=== PATIENT | female | born 1975 | race Caucasian/White ===

== ENCOUNTER 2017-09-23 07:40 | Emergency (ER) | payer SELFPAY ==
[2017-09-23 07:46] VITALS: RESP 16; O2SAT 98
--- NOTE | 2017-09-23 07:56 | EDPHY ---
H & P Stated Complaint: Dx'd with shingles last week;acyclovir was making her nauseous ;wants to kno HPI/ROS: CHIEF COMPLAINT: Nausea HISTORY OF PRESENT ILLNESS: The patient is a 42 y/o female complaining of nausea that began after starting medication for shingles 6 days ago. Two weeks ago she developed itching and burning on the left side of her neck. She never noticed a visible rash. She went to the ED for evaluation on 09/17/17, 6 days ago , and was started on acyclovir and 50mg prednisone for presumed shingles. She feels nauseated whenever she takes the acyclovir so she stopped it 3 days ago. She has continued the prednisone and vomited once last night. Her itching sensation has spread to her back. Cortisone cream helps her itching for about 20 -30 minutes. She has not tried an antihistamine. She continues to be without rash. She denies earache or change in hearing. She denies fever, abdominal pain, diarrhea. She reports a baseline "smoker's cough," but has developed a different cough with associated nasal congestion. She is taking Sudafed for those symptoms. REVIEW OF SYSTEMS: A ten point review of systems was performed and is negative with the exception of the items mentioned in the HPI. Past medical history: GERD Past surgical history: noncontributory Family history: noncontributory Social history: 1 pack/day smoker. Employed as bulk mail clerk. Occasional alcohol use. No illicit drugs. Living in car currently. General Appearance: Alert. Vital signs reviewed. Blood pressure 151/101. Eyes: Pupils equal and round, no conjunctival injection, no discharge. Anicteric. ENT, Mouth: TMs clear bilaterally. No mastoid tenderness. Mucous membranes are moist, no oropharyngeal erythema or edema. Poor dentition. Neck: No lymphadenopathy, supple. No thyromegaly Respiratory: Lungs are clear to auscultation; no wheezes, rales, or rhonchi. Cardiovascular: Regular rate and rhythm; no murmur, rub, or gallop. Gastrointestinal: Abdomen is soft and nontender, no masses or organomegaly, bowel sounds normal. Skin: The left upper back has 3-4 very small papular lesions, not vesicular and not in a dermatomal distribution. No significant lesions, vesicles, or significant notable rash. No hives. Back: Nontender to palpation over the thoracolumbar spine. No CVAT. Extremities: No lower extremity edema, no calf tenderness or swelling. Neurological: Alert and oriented. Moving all four extremities easily and equally. Facial sensation is intact to light touch. Hearing intact to spoken voice and finger rub. Psychiatric: Normal affect. - Personal History LMP (Females 10-55): Over 28 Days Ago Current Tetanus Diphtheria and Acellular Pertussis (TDAP): Yes - Medical/Surgical History Other PMH: perimenopausal. GERD - Social History Smoking Status: Current every day smoker Constitutional: Initial Vital Signs Temperature (C) 36.6 C 09/23/17 07:41 Heart Rate 87 09/23/17 07:41 Respiratory Rate 16 09/23/17 07:41 Blood Pressure 151/101 H 09/23/17 07:41 O2 Sat (%) 98 09/23/17 07:41 O2 Delivery Mode Room Air Allergies/Adverse Reactions: fish oil Allergy (Intermediate, Uncoded 09/23/17 07:46) Hives Home Medications: Medication Instructions Recorded Acyclovir [Zovirax 400 mg (*)] 800 mg PO QID 09/23/17 Omeprazole Magnesium [Prilosec Otc] 20 mg PO 09/23/17 predniSONE 1 mg PO 09/23/17 Medical Decision Making ED Course/Re-evaluation: This is a pleasant 42 y/o female who presents with a 2-week history of pruritis on her left lateral neck that has spread to her left thoracic back. She was treated for presumed shingles, but discontinued the acyclovir due to nausea. I do not see obvious evidence of shingles on exam today, which I would expect after 2 weeks of symptoms if this is shingles. There is only a few very small minor papules on exam on exam of her upper back. These are not vesicular and are not in a dermatomal distribution. No hives. No evidence of scabies on exam of her skin. This could be a dermatitis or allergic in nature. She will receive 10mg PO Zyrtec here. She is employed with [employer] but is currently living in her car and is interested in housing and medical resources. I've asked case management to consult with her. - Data Points Medications Given: Discontinued Medications Cetirizine HCl (Zyrtec) 10 mg PO EDNOW ONE Stop: 09/23/17 08:16 Last Admin: 09/23/17 08:55 Dose: 10 mg Departure - Departure Disposition: Home, Routine, Self-Care Clinical Impression: Pruritic dermatitis Condition: Good Instructions: Dermatitis (ED) Additional Instructions: Use 1 of the nonsedating antihistamine such as Zyrtec or Claritin for the itching. Continue with the hydrocortisone cream on the itchy areas. I also recommend Sarna lotion. You can buy all of this [id number]. Referrals: [facility],. [Clinic] - As per Instructions Stand Alone Forms: Work Excuse Report Scribed for: Magi Berman Report Scribed by: Ciara Thayer Date of Report: 09/23/17 Time of Report: 07:58 Physician Review and Approval Statement: 09/23/17 07:56 Portions of this note were transcribed by the medical record transcriber. I, Dr. Magi Berman, personally performed the history, physical exam, and medical decision- making; and confirmed the accuracy of the information in the transcribed note.
[2017-09-23] MEDS ORDERED: CETIRIZINE 10 MG TAB PO ONE (08:15)
[2017-09-23 11:03] VITALS: BP 145/74; PULSE 77; TEMP 98.2
--- NOTE | 2017-09-23 12:41 | ASMTCMCOM ---
CM Note CM Note Notes: Spoke with patient about current homelessness and living out of her. Patient states she has lived near [place] for almost 3 years and that she became homeless about 1 1/2 years ago. Patient says she recently started working for [employer] but doesn't make enough money to get into housing but "makes too much money and I have two cats" so she is ineligible for any housing benefits/support through local resources. Patient states her works at [employer] and they usually just eat there and deduct the money out of his paycheck. Patient says she has not been in contact with resources for about a year and is open and receptive to reaching back out. Patient provided information on the new Coordinate Entry process and strongly encouraged to go through their screening process. Patient also p[rovided information on other local homeless resources such as community table meals, food gar and case management through [facility]. Patient states she doesn't have a PCP and has never been seen at [facility]; information provided and strongly encouraged to call and make new patient appointment. Patient states she will followup with PC and the CE process. Pt calm, pleasant and appreciative of assistance. Date Signed: 09/23/2017 12:40 PM Electronically Signed By:Mayda Mc RN
--- NOTE | 2017-09-23 12:47 | ASDISCHSUM ---
Discharge Information Plan Status:Homeless/Long Term Medically Cleared to Leave: Discharge Date:09/23/2017 11:01 AM CM D/C Disposition:Home, Routine, Self-Care ADT D/C Disposition:Home, Routine, Self-Care Projected Discharge Date:09/23/2017 11:01 AM Transportation at D/C:None or Unknown Discharge Delay Reason: Follow-Up Date:09/23/2017 11:01 AM Discharge Slot: Final Diagnosis: Placement Information Patient Contact Information Contact Name:MACIE Relationship: Address: Work Phone: City: [facility] [place] Phone: State/Zip Code: Email: Financial Information Financial Class:Self-Pay Primary Plan Desc:SELF PAY Primary Plan Number: Secondary Plan Desc: Secondary Plan Number: Assessment Information [facility] Progress Note CM Note CM Note Notes: Spoke with patient about current homelessness and living out of her. Patient states she has lived near [place] for almost 3 years and that she became homeless about 1 1/2 years ago. Patient says she recently started working for [employer] but doesn't make enough money to get into housing but "makes too much money and I have two cats" so she is ineligible for any housing benefits/support through local resources. Patient states her works at [employer] and they usually just eat there and deduct the money out of his paycheck. Patient says she has not been in contact with resources for about a year and is open and receptive to reaching back out. Patient provided information on the new Coordinate Entry process and strongly encouraged to go through their screening process. Patient also p[rovided information on other local homeless resources such as community table meals, food gar and case management through [employer]. Patient states she doesn't have a PCP and has never been seen at [facility]; information provided and strongly encouraged to call and make new patient appointment. Patient states she will followup with PC and the CE process. Pt calm, pleasant and appreciative of assistance. Date Signed: 09/23/2017 12:40 PM Electronically Signed By:Mayda Mc RN LACE LACE Emergency dept visits in Answers: 1 last 6 months Score: 1 Date Signed: 09/23/2017 12:44 PM Electronically Signed By:Mayda Mc RN Intervention Information
== END 2017-09-23 11:01 | disposition home or self-care (01) ==
DX: L30.8 Other specified dermatitis (principal); F17.200 Nicotine dependence, unspecified, uncomplicated

== ENCOUNTER 2018-08-19 13:41 | Emergency (ER) | payer SELFPAY ==
[2018-08-19] MEDS ORDERED: ALBUTEROL 3 ML DEYVIAL IH ONE (14:21)
[2018-08-19] MEDS ORDERED: predniSONE 20 MG TAB PO ONE (14:21)
[2018-08-19] MEDS ORDERED: IPRATROPIUM/ALBUTEROL 3 ML DEYVIAL IH ONE (14:21)
--- NOTE | 2018-08-19 14:22 | EDPHY ---
H & P Time Seen by Provider: 08/19/18 14:16 HPI/ROS: CHIEF COMPLAINT: Cough and shortness of breath HISTORY OF PRESENT ILLNESS: History of bronchitis, tobacco smoker, no history of pulmonary embolism or pneumonia or ACS. Patient started having cough 2 days ago, presents today with persistent cough and shortness of breath. Worse with exertion. Not associated with sputum production or fevers or chills or chest pain. No leg swelling. No hemoptysis. Symptoms moderate. REVIEW OF SYSTEMS: Eye: no change in vision ENT: no sore throat Cardiac: no chest pain or syncope Pulmonary: HPI Abdomen: no vomiting, diarrhea, abdominal pain Musculoskeletal: no back pain Skin: no rash Neuro: no headache Constitutional: no fever : no urinary symptoms A comprehensive 10 point review of systems is otherwise negative aside from elements mentioned in the history of present illness. PAST MEDICAL HISTORY: Includes bronchitis, right knee surgery, left shoulder surgery, GERD Social history: Tobacco smoker General Appearance: Alert and conversant, cooperative. Eyes: No scleral icterus. ENT, Mouth: Normal mucous membranes. No angioedema. Respiratory: Bilateral expiratory wheezing, no focal lung sounds, speaks in full sentences. Cardiovascular: Regular rate and rhythm. Gastrointestinal: Abdomen is soft and non tender. Neurological: Alert, face symmetric, normal motor and sensory in extremities. Skin: Warm and dry, no rashes. Musculoskeletal: No peripheral edema. No calf tenderness. Psychiatric: Not agitated. Emergency Department course/MDM: Likely URI with significant bronchospasm. DuoNeb and albuterol, prednisone discussed and consented. 1502: "I can finally breathe" and lungs clearer, 92-3% on RA, stable for DC. Smoking Status: Current every day smoker Constitutional: Initial Vital Signs Temperature (C) 37.2 C 08/19/18 13:44 Heart Rate 107 H 08/19/18 13:44 Respiratory Rate 24 H 08/19/18 13:44 Blood Pressure 146/96 H 08/19/18 13:44 O2 Sat (%) 93 08/19/18 13:44 O2 Delivery Mode Room Air Allergies/Adverse Reactions: fish oil Allergy (Intermediate, Uncoded 08/19/18 13:43) Hives Home Medications: Medication Instructions Recorded Albuterol Hfa Anes Only [Proair 2 puffs IH QID #1 mdi 08/19/18 Hfa Icu (*)] Sudafed 12 Hour 08/19/18 Tylenol 08/19/18 predniSONE [prednisone 20mg (RX)] 20 mg PO Q12 #10 tab 08/19/18 Medical Decision Making Differential Diagnosis: Differential diagnosis considered for shortness of breath including but not limited to pulmonary infectious process, COPD, asthma, pulmonary embolus and congestive heart failure. - Data Points Medications Given: Discontinued Medications Albuterol (Proventil Neb) 3 ml IH EDNOW ONE Stop: 08/19/18 14:22 Last Admin: 08/19/18 14:32 Dose: 3 ml Albuterol/Ipratropium (Duoneb) 3 ml IH EDNOW ONE Stop: 08/19/18 14:22 Last Admin: 08/19/18 14:32 Dose: 3 ml Prednisone (Prednisone) 60 mg PO EDNOW ONE Stop: 08/19/18 14:22 Last Admin: 08/19/18 14:32 Dose: 60 mg Departure - Departure Disposition: Home, Routine, Self-Care Clinical Impression: Acute bronchitis Qualifiers: Bronchitis organism: unspecified organism Qualified Code(s): J20.9 - Acute bronchitis, unspecified Condition: Good Instructions: Bronchospasm (ED) Referrals: Yoli Tejada MD [[facility] Primary Care Provider] - As per Instructions Prescriptions: Albuterol Hfa Anes Only [Proair Hfa Icu (*)] 2 puffs IH QID #1 mdi predniSONE [prednisone 20mg (RX)] 20 mg PO Q12 #10 tab
[2018-08-19 15:16] VITALS: BP 153/107
== END 2018-08-19 15:17 | disposition home or self-care (01) ==
DX: J20.9 Acute bronchitis, unspecified (principal); F17.200 Nicotine dependence, unspecified, uncomplicated
CPT/HCPCS: J7512; J7613

== ENCOUNTER 2019-01-17 13:53 | Emergency (ER) | payer OTHER ==
[2019-01-17 14:03] VITALS: BP 133/84
--- NOTE | 2019-01-17 15:22 | EDPHY ---
H & P Stated Complaint: slipped and fell on R knee today Time Seen by Provider: 01/17/19 15:19 HPI/ROS: HPI: This is a 43-year-old female who presents with Chief Complaint: slipped and fell on R knee today Location: Right knee Quality: Injury Duration: 2 hr prior to arrival Signs and Symptoms: No bleeding, no radiation, no numbness, no weakness, no tingling, no incontinence, + decreased range of motion, + swelling, + pain, no fever Timing: Acute Severity: Moderate Context: Patient was at work with [employer] when she stepped on black ice and slipped and landed directly on the anterior portion of her right knee. She also reports twisting injury to her right knee with associated swelling. She as pain in the posterior region worsened with full extension. History of right ACL surgery last summer. Pain increased with weight-bearing. Denies LOC/head injury/neck pain/dizziness/nausea/vomiting/ amnesia. Modifying Factors: None Comment: ROS: A comprehensive 10 system review of systems is otherwise negative aside from elements mentioned in the history of present illness. MEDICAL/SURGICAL/SOCIAL HISTORY: Medical history: History of bronchitis, GERD Surgical history: Right knee ACL arthroscopy May 2018, left shoulder surgery, tonsillectomy Social history: Employed. Current every day smoker. CONSTITUTIONAL: Well-developed, well-nourished, middle-aged white female, awake and alert, no obvious distress HEENT: Atraumatic and normocephalic. NECK: supple, no midline tenderness, flexion 45 degrees, extension 45 degrees, right and left lateral flexion 45 degrees. Cardiovascular: Normal S1/S2, regular rate, regular rhythm, without murmur rub or gallop. PULMONARY/CHEST: Symmetrical and nontender. no crepitus. Clear to auscultation bilaterally. Good air movement. No accessory muscle usage. ABDOMEN: Soft, nondistended, nontender, no ecchymosis. BACK: No midline tenderness, no paraspinous spasm, deep tendon reflexes 2/2, no pain with straight leg raise, No foot drop. Achilles reflexes are equal bilaterally. EXTREMITIES: 2/2 pulses, strength 5/5, right KNEE: Mild effusion, no medial and lateral joint line tenderness, extension decreased to 120, flexion to 90. Mild pain with varus and valgus exam. Mild pain with anterior drawer or posterior drawer test. Extensor mechanism intact. DIP/PIP/MCP flexion/extension intact with good light touch sensation. no deformities, no clubbing, no cyanosis or edema. NEUROLOGICAL: no focal neuro deficits. GCS 15. Light touch sensation intact. SKIN: Warm and dry, no erythema. no rash. Good capillary refill. Source: Patient Exam Limitations: No limitations - Personal History Current Tetanus/Diphtheria Vaccine: No Current Tetanus Diphtheria and Acellular Pertussis (TDAP): No - Medical/Surgical History Hx Asthma: No Hx Chronic Respiratory Disease: No Hx Diabetes: No Hx Cardiac Disease: No Hx Renal Disease: No Hx Cirrhosis: No Hx Alcoholism: No Hx HIV/AIDS: No Hx Splenectomy or Spleen Trauma: No Other PMH: bronchitis, R knee surgery 05/28, L shoulder surgery, tonsilectomy. GERD - Social History Smoking Status: Current every day smoker Constitutional: Initial Vital Signs Temperature (C) 36.7 C 01/17/19 14:01 Heart Rate 75 01/17/19 14:01 Respiratory Rate 16 01/17/19 14:01 Blood Pressure 133/84 H 01/17/19 14:01 O2 Sat (%) 97 01/17/19 14:01 O2 Delivery Mode Room Air Allergies/Adverse Reactions: fish oil Allergy (Intermediate, Uncoded 08/19/18 13:43) Hives Home Medications: Medication Instructions Recorded oxyCODONE/APAP 5/325 [Percocet 1 - 2 tab PO Q4H PRN #10 tab 01/17/19 5/325 (*)] Medical Decision Making - Diagnostics Imaging Results: Imaging Impressions Knee X-Ray 01/17/19 14:04 Impression: Negative. Procedures: Procedure: Splint placement. A right knee immobilizer and crutches were applied. After application of the splint I returned and re-examined the patient. The splint was adequately immobilizing the joint and distal to the splint the patient's circulation and sensation was intact. ED Course/Re-evaluation: Vital signs reviewed and stable upon arrival. Fall mechanical in nature. Right knee x-ray my read shows no fracture, dislocation. Suspect internal derangement Placed in knee immobilizer, crutches, orthopedic follow-up workman's comp paperwork completed No signs of neurovascular compromise/tenting of skin/compartment syndrome/ extremities and joints examined above and below area of concern and are neurovascularly intact. This patient was seen under the supervision of my secondary supervising physician. I evaluated care for this patient independently. Differential Diagnosis: Knee injury while [] including but not limited to fracture, ACL injury, contusion, muscular strain, and meniscus injury. Departure - Departure Disposition: Home, Routine, Self-Care Clinical Impression: Internal derangement of right knee Condition: Good Instructions: Knee Sprain (ED) Additional Instructions: Wear the knee immobilizer while out of bed until pain free or seen by Orthopedics. Use crutches to aid ambulation. Start with toe-touch weight-bearing status. Take Tylenol 650 mg every 4 hours and/or Ibuprofen 600 mg every 8 hours with food as needed for pain. Use Percocet every 6 hours as needed for severe/break through pain. Do not use Tylenol and Percocet concomitantly. Apply ice for 30 minutes at a time; 2-3 times per day for the next 1-2 days. Follow up with Orthopedics in 5-7 days at which time they will evaluate and recommend with you if conservative management versus further imaging like MRI is indicated. The x-rays obtained in the emergency department today demonstrate no evidence of an obvious fracture. Sometimes fractures are not obvious on the initial set of x-rays performed in the ED. For this reason, you should have repeat x-rays performed in 7-10 days if you are having any pain exclude the possibility of an occult fracture. Work Related Injury: Date of Injury (if different from Date of Service): 01/17/2019 Your work restrictions, if any, last only until the next business day. Formal evaluation for work restrictions beyond one day must be arranged through your employer's workman's compensation provider. Restrictions are noted below: No prolonged standing or walking. Referrals: Dayna Mills MD [Medical Doctor] - As per Instructions Stand Alone Forms: Work Comp Follow Up Prescriptions: oxyCODONE/APAP 5/325 [Percocet 5/325 (*)] 1 - 2 tab PO Q4H PRN #10 tab PRN Reason: Pain, Severe
== END 2019-01-17 15:43 | disposition home or self-care (01) ==
DX: M23.91 Unspecified internal derangement of right knee (principal); W00.0XXA Fall on same level due to ice and snow, initial encounter; Y93.01 Activity, walking, marching and hiking; Y99.0 Civilian activity done for income or pay
CPT/HCPCS: L1830